=== PATIENT | male | born 1945 | race Caucasian/White ===

== ENCOUNTER 2020-05-14 08:12 | Inpatient (IN) | payer OTHER ==
[~2020-05-14] VITALS: Ht 188 cm; Wt 127.9 kg
[2020-05-14 11:30] VITALS: BP 138/65
[2020-05-14 12:31] VITALS: BP 137/66
[2020-05-14] MEDS ORDERED: PLEASE ENTER ALLERGIES MC SCH (13:00)
[2020-05-14] MEDS: LACTATED RINGERS 1,000 ML IV SCH (13:10)
[2020-05-14 13:24] LABS: BASOPHILS % (AUTO) 1 % (0-1); EOSINOPHILS % (AUTO) 1 % (1-7); LYMPHOCYTES % (AUTO) 10 % (22-44); MEAN CORPUSCULAR HEMOGLOBIN 32.9 pg (27.5-34.5); MEAN CORPUSCULAR HGB CONC 33.5 g/dL (33.2-36.2); MEAN PLATELET VOLUME 7.8 fL (7.4-10.4); MONOCYTES % (AUTO) 6 % (2-9); NEUTROPHILS % (AUTO) 83 % (42-75); PLATELET COUNT 339 x10^3/uL (130-400); RED BLOOD COUNT 4.42 x10^6/uL (4.38-5.82); RED CELL DISTRIBUTION WIDTH 14.5 % (9.4-14.8)
[2020-05-14 13:25] LABS: MD NO
[2020-05-14] MEDS: HEPARIN 5,000 UNITS/ML, 1ML SQ SCH ×2 (13:28→22:50)
[2020-05-14 13:33] LABS: INTERNATIONAL NORMALIZED RATIO 1.01 (0.93-1.1); PROTHROMBIN TIME 10.4 Seconds (9.6-11.5)
[2020-05-14 13:35] LABS: ANION GAP 9 mmol/L (5-15); CALCIUM 9.1 mg/dL (8.5-10.1); CHLORIDE 112 mmol/L (98-107); CREATININE 1.63 mg/dL (0.7-1.3)
[2020-05-14] MEDS ORDERED: INSU100I28 SQ (13:35)
[2020-05-14] MEDS ORDERED: PANT40TA6 PO (13:35)
[2020-05-14] MEDS ORDERED: INSU100C5 SQ-INSULIN (13:35)
[2020-05-14] MEDS ORDERED: CHOL10003 PO (13:35)
[2020-05-14] MEDS ORDERED: DILT180C91 PO (13:35)
[2020-05-14] MEDS ORDERED: ALBU90AE2 INH (13:35)
[2020-05-14] MEDS ORDERED: OMEG1CAP23 PO (13:35)
[2020-05-14] MEDS ORDERED: CYAN100074 PO (13:35)
[2020-05-14] MEDS ORDERED: ROSU5TAB PO (13:35)
[2020-05-14] MEDS ORDERED: VALS40TA2 PO (13:35)
[2020-05-14] MEDS ORDERED: MULT-658 PO (13:35)
[2020-05-14] MEDS: INSULIN LISPRO 100 UNITS/ML, PEN SQ-INSULIN SCH ×2 (16:44→23:09)
[2020-05-14] MEDS ORDERED: FENTANYL PF 250 MCG/5ML ONE (17:45)
[2020-05-14] MEDS ORDERED: DIPHENHYDRAMINE 50 MG/ML, 1ML IVPush PRN (18:00)
[2020-05-14] MEDS ORDERED: HALOPERIDOL 5 MG/ML IV PRN (18:00)
[2020-05-14] MEDS ORDERED: HYDROmorphone 1 MG/ML, 1ML INJ IVPush PRN (18:00)
[2020-05-14] MEDS ORDERED: hydrALAzine 20 MG/ML, 1ML IV PRN (18:00)
[2020-05-14] MEDS ORDERED: OXYcodone 5 MG/5 ML ORAL.SOL UDC PO PRN (18:00)
[2020-05-14] MEDS ORDERED: MEPERIDINE/PF 25MG/0.5ML IVPush PRN (18:00)
[2020-05-14] MEDS ORDERED: FENTANYL PF 100 MCG/2ML IV PRN (18:00)
[2020-05-14] MEDS ORDERED: PROMETHAZINE 25 MG/ML, 1ML IVPush PRN (18:00)
[2020-05-14] MEDS ORDERED: LABETALOL 5MG/ML, 20ML IV PRN (18:00)
[2020-05-14] MEDS ORDERED: DEXAMETHASONE 4 MG/ML, 1ML ONE (18:50)
[2020-05-14] MEDS ORDERED: PROPOFOL 10 MG/ML, 20ML ONE (18:50)
[2020-05-14] MEDS ORDERED: ROCURONIUM 10MG/ML,5ML ONE (18:50)
[2020-05-14] MEDS ORDERED: SUCCINYLCHOLINE 20 MG/ML, 10ML ONE (18:50)
[2020-05-14] MEDS ORDERED: CEFAZOLIN 1,000 MG ONE (18:50)
[2020-05-14] MEDS ORDERED: ONDANSETRON 2MG/ML, 2ML ONE (18:50)
[2020-05-14] MEDS ORDERED: GLYCOPYRROLATE 0.2MG/1ML, 5ML ONE (18:50)
[2020-05-14] MEDS ORDERED: NEOSTIGMINE 1 MG/ML, 10ML ONE (18:50)
[2020-05-14] MEDS ORDERED: MEPERIDINE/PF 25MG/ML,1ML ONE (19:24)
[2020-05-14] MEDS ORDERED: OXYcodone 5 MG/5 ML ORAL.SOL UDC ONE (19:24)
[2020-05-14] MEDS ORDERED: ACETAMINOPHEN 650 MG/20.3 ML UDC ONE (19:26)
[2020-05-14] MEDS: ACETAMINOPHEN 325 MG TABLET PO PRN (19:47)
[2020-05-14 20:09] VITALS: BP 136/57
[2020-05-14] MEDS: KETOROLAC 30 MG/1 ML IV PRN (23:16)
[2020-05-15] MEDS: CEFAZOLIN 2,000 MG in SODIUM CHLORIDE 0.9% 50 ML IV SCH ×2 (00:23→09:19)
[2020-05-15 00:32] VITALS: BP 144/79
[2020-05-15 03:38] VITALS: BP 148/92
[2020-05-15] MEDS: HEPARIN 5,000 UNITS/ML, 1ML SQ SCH ×3 (04:30→21:17)
[2020-05-15 05:54] LABS: BASOPHILS % (AUTO) 0 % (0-1); EOSINOPHILS % (AUTO) 0 % (1-7); LYMPHOCYTES % (AUTO) 6 % (22-44); MEAN CORPUSCULAR HEMOGLOBIN 32.5 pg (27.5-34.5); MEAN CORPUSCULAR HGB CONC 33.4 g/dL (33.2-36.2); MEAN PLATELET VOLUME 7.7 fL (7.4-10.4); MONOCYTES % (AUTO) 3 % (2-9); NEUTROPHILS % (AUTO) 91 % (42-75); PLATELET COUNT 327 x10^3/uL (130-400); RED BLOOD COUNT 4.49 x10^6/uL (4.38-5.82); RED CELL DISTRIBUTION WIDTH 14.4 % (9.4-14.8)
[2020-05-15 05:57] LABS: ANION GAP 8 mmol/L (5-15); CALCIUM 9.3 mg/dL (8.5-10.1); CHLORIDE 111 mmol/L (98-107); CREATININE 1.69 mg/dL (0.7-1.3)
[2020-05-15] MEDS: KETOROLAC 30 MG/1 ML IV PRN ×3 (06:11→21:07)
[2020-05-15 07:02] LABS: MD SCAN
[2020-05-15 07:44] VITALS: BP 147/80
[2020-05-15] MEDS: LACTATED RINGERS 1,000 ML IV SCH ×2 (07:51→21:08)
[2020-05-15] MEDS: SENNA/DOCUSATE TABLET PO SCH (07:51)
[2020-05-15] MEDS: INSULIN LISPRO 100 UNITS/ML, PEN SQ-INSULIN SCH ×4 (07:53→21:18)
[2020-05-15] MEDS ORDERED: ALBUTEROL HFA 90 MCG/SPRAY INH PRN (09:30)
[2020-05-15 13:43] VITALS: BP 115/72
[2020-05-15] MEDS: PROCHLORPERAZINE 5 MG/ML, 2ML IM PRN (14:38)
[2020-05-15 16:40] VITALS: BP 129/78
[2020-05-15] MEDS: LACTOBACILLUS CHEW TABLET PO SCH ×2 (16:44→21:08)
[2020-05-15] MEDS: CARVEDILOL 3.125 MG TABLET PO SCH (16:44)
[2020-05-15] MEDS: ACETAMINOPHEN 325 MG TABLET PO PRN (16:46)
[2020-05-15 20:18] VITALS: BP 111/67
[2020-05-15] MEDS ORDERED: TEMPLATE NON-FORMULARY MED. (Rosuvastatin Calcium** (Crestor**) 5 MG) PO SCH (21:00)
[2020-05-15] MEDS ORDERED: INSULIN GLARGINE 100 UNITS/ML, PEN SQ-INSULIN SCH (21:00)
[2020-05-15] MEDS: ATORVASTATIN 40 MG TABLET PO SCH (21:09)
[2020-05-16 02:03] VITALS: BP 130/74
[2020-05-16 04:41] LABS: ANION GAP 5 mmol/L (5-15); CALCIUM 8.9 mg/dL (8.5-10.1); CHLORIDE 109 mmol/L (98-107); CREATININE 1.67 mg/dL (0.7-1.3)
[2020-05-16] MEDS: CARVEDILOL 3.125 MG TABLET PO SCH ×2 (05:28→16:26)
[2020-05-16] MEDS: ASPIRIN 81 MG TABLET EC PO SCH (05:28)
[2020-05-16] MEDS: HEPARIN 5,000 UNITS/ML, 1ML SQ SCH ×3 (05:29→20:54)
[2020-05-16 06:33] LABS: BASOPHILS % (AUTO) 1 % (0-1); EOSINOPHILS % (AUTO) 0 % (1-7); LYMPHOCYTES % (AUTO) 8 % (22-44); MEAN CORPUSCULAR HEMOGLOBIN 31.9 pg (27.5-34.5); MEAN CORPUSCULAR HGB CONC 32.6 g/dL (33.2-36.2); MEAN PLATELET VOLUME 8.2 fL (7.4-10.4); MONOCYTES % (AUTO) 6 % (2-9); NEUTROPHILS % (AUTO) 85 % (42-75); PLATELET COUNT 367 x10^3/uL (130-400); RED BLOOD COUNT 3.93 x10^6/uL (4.38-5.82); RED CELL DISTRIBUTION WIDTH 14.1 % (9.4-14.8)
[2020-05-16 07:06] LABS: MD SCAN
[2020-05-16 07:27] VITALS: BP 151/81
[2020-05-16] MEDS: SENNA/DOCUSATE TABLET PO SCH (07:36)
[2020-05-16] MEDS: MULTIVITAMIN 1 TABLET PO SCH (07:36)
[2020-05-16] MEDS: LACTOBACILLUS CHEW TABLET PO SCH ×3 (07:36→20:55)
[2020-05-16] MEDS: OMEGA-3/FISH OIL CAPSULE PO SCH (07:37)
[2020-05-16] MEDS: CHOLECALCIFEROL 1,000 UNIT TABLET PO SCH (07:37)
[2020-05-16] MEDS: CYANOCOBALAMIN 1,000 MCG TABLET PO SCH (07:38)
[2020-05-16] MEDS: PANTOPRAZOLE 40MG TABLET PO SCH (07:39)
[2020-05-16] MEDS: LOSARTAN 25MG TABLET PO SCH (07:39)
[2020-05-16] MEDS: INSULIN LISPRO 100 UNITS/ML, PEN SQ-INSULIN SCH ×4 (07:40→20:55)
[2020-05-16] MEDS: PROCHLORPERAZINE 5 MG/ML, 2ML IM PRN (07:48)
[2020-05-16] MEDS ORDERED: TEMPLATE NON-FORMULARY MED. (Valsartan** (Diovan**) 40 MG) PO SCH (09:00)
[2020-05-16] MEDS: LACTATED RINGERS 1,000 ML IV SCH (10:23)
[2020-05-16] MEDS: KETOROLAC 30 MG/1 ML IV PRN ×3 (10:23→22:52)
[2020-05-16] MEDS: ACETAMINOPHEN 325 MG TABLET PO PRN (11:31)
[2020-05-16] MEDS ORDERED: MAGNESIUM CITRATE 300ML ORAL SOL PO PRN (13:30)
[2020-05-16] MEDS ORDERED: BISACODYL 10 MG SUPP PR PRN (13:30)
[2020-05-16 13:42] VITALS: BP 139/78
[2020-05-16] MEDS: MORPHINE SULFATE 4 MG/ML, 1ML IVPush PRN ×2 (14:49→14:50)
[2020-05-16] MEDS ORDERED: Senna/Docusate PO (14:55)
[2020-05-16] MEDS ORDERED: ACID1TAB7 PO (14:55)
[2020-05-16] MEDS ORDERED: ATOR40TA78 PO (14:55)
[2020-05-16] MEDS ORDERED: ASPI81TA45 PO (14:55)
[2020-05-16] MEDS ORDERED: ACET325T26 PO (14:58)
[2020-05-16 16:20] VITALS: BP 154/82
[2020-05-16 18:50] VITALS: BP 145/83
[2020-05-16] MEDS: ATORVASTATIN 40 MG TABLET PO SCH (20:55)
[2020-05-16] MEDS ORDERED: INSULIN GLARGINE 100 UNITS/ML, PEN SQ-INSULIN SCH (21:00)
[2020-05-17] MEDS: LACTATED RINGERS 1,000 ML IV SCH ×2 (00:36→15:08)
[2020-05-17 00:58] VITALS: BP 119/73
[2020-05-17] MEDS: KETOROLAC 30 MG/1 ML IV PRN ×2 (04:24→13:34)
[2020-05-17] MEDS: HEPARIN 5,000 UNITS/ML, 1ML SQ SCH ×2 (05:23→12:50)
[2020-05-17] MEDS: CARVEDILOL 3.125 MG TABLET PO SCH (05:23)
[2020-05-17] MEDS: ASPIRIN 81 MG TABLET EC PO SCH (05:23)
[2020-05-17 07:51] VITALS: BP 155/82
[2020-05-17] MEDS: LACTOBACILLUS CHEW TABLET PO SCH (08:13)
[2020-05-17] MEDS: OMEGA-3/FISH OIL CAPSULE PO SCH (08:13)
[2020-05-17] MEDS: CHOLECALCIFEROL 1,000 UNIT TABLET PO SCH (08:13)
[2020-05-17] MEDS: LOSARTAN 25MG TABLET PO SCH (08:13)
[2020-05-17] MEDS: PANTOPRAZOLE 40MG TABLET PO SCH (08:13)
[2020-05-17] MEDS: MULTIVITAMIN 1 TABLET PO SCH (08:13)
[2020-05-17] MEDS: SENNA/DOCUSATE TABLET PO SCH (08:13)
[2020-05-17] MEDS: PROCHLORPERAZINE 5 MG/ML, 2ML IM PRN ×2 (08:14→15:26)
[2020-05-17] MEDS: INSULIN LISPRO 100 UNITS/ML, PEN SQ-INSULIN SCH ×2 (08:15→11:21)
[2020-05-17] MEDS: CYANOCOBALAMIN 1,000 MCG TABLET PO SCH (08:15)
[2020-05-17] MEDS ORDERED: METHYLNALTREXONE 12 MG/0.6 ML SYR SQ ONE (08:30)
[2020-05-17 09:40] LABS: BASOPHILS % (AUTO) 1 % (0-1); EOSINOPHILS % (AUTO) 3 % (1-7); LYMPHOCYTES % (AUTO) 18 % (22-44); MEAN CORPUSCULAR HEMOGLOBIN 32.2 pg (27.5-34.5); MEAN CORPUSCULAR HGB CONC 33.2 g/dL (33.2-36.2); MEAN PLATELET VOLUME 7.7 fL (7.4-10.4); MONOCYTES % (AUTO) 8 % (2-9); NEUTROPHILS % (AUTO) 70 % (42-75); PLATELET COUNT 352 x10^3/uL (130-400); RED BLOOD COUNT 4.12 x10^6/uL (4.38-5.82); RED CELL DISTRIBUTION WIDTH 14.2 % (9.4-14.8)
[2020-05-17 09:42] LABS: MD NO
[2020-05-17 09:48] LABS: ANION GAP 5 mmol/L (5-15); CALCIUM 8.9 mg/dL (8.5-10.1); CHLORIDE 107 mmol/L (98-107); CREATININE 1.57 mg/dL (0.7-1.3)
[2020-05-17] MEDS ORDERED: AMLO-150 PO (14:32)
[2020-05-17 15:34] VITALS: BP 149/85
[2020-05-17] MEDS ORDERED: CLOP75TA52 PO (15:38)
[2020-05-17] MEDS ORDERED: AMLODIPINE 5 MG TABLET PO SCH (21:00)
[2020-05-17] MEDS ORDERED: INSULIN GLARGINE 100 UNITS/ML, PEN SQ-INSULIN SCH (21:00)
== END 2020-05-17 15:50 | DRG 494 ==
LOC: 4NE 11:18
PROVIDERS: ADMIT Family Medicine; ATTEND Internal Medicine
PROC: 0QSG06Z Reposition Right Tibia with Intramedullary Internal Fixation Device, Open Approach (ICD-10-PCS; principal; 2020-05-14 17:30)
DX: S82.241A Displaced spiral fracture of shaft of right tibia, initial encounter for closed fracture (principal); S82.401A Unspecified fracture of shaft of right fibula, initial encounter for closed fracture; R33.8 Other retention of urine; Z20.828 Contact with and (suspected) exposure to other viral communicable diseases; E11.65 Type 2 diabetes mellitus with hyperglycemia; E66.9 Obesity, unspecified; G47.33 Obstructive sleep apnea (adult) (pediatric); I10 Essential (primary) hypertension; I25.2 Old myocardial infarction; W01.0XXA Fall on same level from slipping, tripping and stumbling without subsequent striking against object, initial encounter; G47.30 Sleep apnea, unspecified; Z90.49 Acquired absence of other specified parts of digestive tract; Z68.36 Body mass index [BMI] 36.0-36.9, adult
CPT/HCPCS: 36415; 76000; 80048; 82962; 83036; 85025; 85610; 87635; C1713; G0378; J0690; J1100; J1644; J1885; J2175; J2405; J2704; J2710; J3010; J0330; J0780; J1815; J2270; J7120